=== PATIENT | male | born 1950 | race American Indian/Alaskan Native ===

== ENCOUNTER 2017-05-17 16:24 | Emergency (ER) | payer OTHER ==
--- NOTE | 2017-05-17 20:35 | Emergency Department Report ---
ED Fall HPI - General Chief Complaint: Fall Stated Complaint: FELL/RT LEG/BACK PAIN Time Seen by Provider: 05/17/17 19:49 Source: patient Mode of arrival: Ambulatory - History of Present Illness Initial Comments: Comes into the ER today with complaint of right posterior leg pain as well as right lower back pain after falling in [employer] 2 days ago. Patient states that he slipped and fell where one leg went forward and the other leg went backwards. Patient states that he had to be helped up. Patient denies any head injury. Patient states that the pain does seem to improve as he moves around and ambulates and that it is worse after he has been immobile for a while. Patient denies any loss of bowel control, urinary control, abdominal pain. Patient has been taking [id number] medications without any relief. MD Complaint: fall -: days(s) (2) - Related Data Previous Rx's Medication Instructions Recorded Last Taken Type Cyclobenzaprine [Flexeril] 10 mg PO TID PRN #20 tablet 05/17/17 Unknown Rx Naproxen [Naprosyn TAB] 500 mg PO BID #20 tablet 05/17/17 Unknown Rx traMADol [Ultram] 50 mg PO Q4HR PRN #30 tablet 05/17/17 Unknown Rx Allergies Allergy/AdvReac Type Severity Reaction Status Date / Time No Known Allergies Allergy Unverified 05/17/17 17:26 ED Review of Systems ROS: Stated complaint: FELL/RT LEG/BACK PAIN Other details as noted in HPI Constitutional: denies: chills, fever Eyes: denies: eye pain, eye discharge, vision change ENT: denies: ear pain, throat pain Respiratory: denies: cough, shortness of breath, wheezing Cardiovascular: denies: chest pain, palpitations Endocrine: no symptoms reported Gastrointestinal: denies: abdominal pain, nausea, diarrhea Genitourinary: denies: urgency, dysuria, testicular pain Musculoskeletal: back pain, myalgia. denies: joint swelling, arthralgia Skin: denies: rash, lesions Neurological: denies: headache, weakness, numbness, paresthesias, confusion, vertigo Psychiatric: denies: anxiety, depression Hematological/Lymphatic: denies: easy bleeding, easy bruising ED Past Medical Hx - Past Medical History Hx Asthma: Yes Additional medical history: MORBID OBESITY - Surgical History Past Surgical History?: No - Social History Smoking Status: Never Smoker Substance Use Type: None - Medications Home Medications: Home Medications Medication Instructions Recorded Confirmed Last Taken Type Cyclobenzaprine [Flexeril] 10 mg PO TID PRN #20 tablet 05/17/17 Unknown Rx Naproxen [Naprosyn TAB] 500 mg PO BID #20 tablet 05/17/17 Unknown Rx traMADol [Ultram] 50 mg PO Q4HR PRN #30 tablet 05/17/17 Unknown Rx ED Physical Exam - General Limitations: No Limitations General appearance: alert, in no apparent distress, obese - Head Head exam: Present: atraumatic, normocephalic, normal inspection - Eye Eye exam: Present: normal appearance - ENT ENT exam: Present: mucous membranes moist - Neck Neck exam: Present: normal inspection, full ROM. Absent: tenderness - Respiratory Respiratory exam: Present: normal lung sounds bilaterally. Absent: respiratory distress - Cardiovascular Cardiovascular Exam: Present: regular rate, normal rhythm. Absent: systolic murmur, diastolic murmur, rubs, gallop - GI/Abdominal GI/Abdominal exam: Present: soft, normal bowel sounds - Rectal Rectal exam: Present: deferred - Extremities Exam Extremities exam: Present: normal inspection, tenderness (right posterior thigh tenderness in hamstring region.), normal capillary refill. Absent: full ROM ( Limited right straight leg raise secondary to posterior right leg pain), pedal edema, calf tenderness - Back Exam Back exam: Present: normal inspection, tenderness (right lateral lumbar paraspinal tenderness), muscle spasm, paraspinal tenderness. Absent: full ROM ( Limited range of motion of lumbar spine secondary to pain), CVA tenderness (R), CVA tenderness (L), vertebral tenderness - Neurological Exam Neurological exam: Present: alert, oriented X3, CN II-XII intact, reflexes normal. Absent: motor sensory deficit - Psychiatric Psychiatric exam: Present: normal affect, normal mood - Skin Skin exam: Present: warm, dry, intact, normal color. Absent: rash ED Course Vital Signs 05/17/17 17:15 Temperature 98.2 F Pulse Rate 100 H Respiratory 18 Rate Blood Pressure 160/102 O2 Sat by Pulse 99 Oximetry ED Medical Decision Making - Radiology Data Radiology results: image reviewed interpreted by me: X-ray lumbar spine: No obvious acute bone pathology noted. No acute fracture, misalignment, disc space narrowing noted. Slight right lateral malrotation consistent with possible muscle spasm. Imaging quality limited secondary to body habitus. - Medical Decision Making Patient is nontoxic and hemodynamically stable. Patient able to stand on right leg without any difficulty. Patient's complaints seems to worsen with range of motion and movement with muscle contraction. X-ray imaging reviewed and discussed the patient in room. However refer patient to orthopedics for further evaluation and to ensure resolution of his injuries as well as start patient on a course of muscle relaxants, anti-inflammatories, pain medications for symptomatic relief. I have encouraged patient to continue range of motion activities while avoiding any strenuous activity. Patient is in agreement with treatment plan patient is stable for discharge. Critical care attestation.: If time is entered above; I have spent that time in minutes in the direct care of this critically ill patient, excluding procedure time. ED Disposition Clinical Impression: Fall with injury, Acute right-sided low back pain, Right hamstring muscle strain Disposition: TO HOME OR SELFCARE Is pt being admited?: No Does the pt Need Aspirin: No Condition: Good Instructions: Muscle Strain (ED), Low Back Strain (ED) Prescriptions: Cyclobenzaprine [Flexeril] 10 mg PO TID PRN #20 tablet PRN Reason: Muscle Spasm Naproxen [Naprosyn TAB] 500 mg PO BID #20 tablet traMADol [Ultram] 50 mg PO Q4HR PRN #30 tablet PRN Reason: Pain Referrals: PRIMARY CAREMD [Primary Care Provider] - 3-5 Days OMEGA LOVE MD [Staff Physician] - 3-5 Days Forms: Work/School Release Form(ED) Time of Disposition: 21:37
--- NOTE | 2017-05-17 21:35 | XRay Report ---
FINAL REPORT EXAM: XR SPINE LUMBOSACRAL 2-3V HISTORY: Low Back pain, fall injury . Patient slipped in water. TECHNIQUE: A single lateral view of the lumbar spine PRIORS: None. FINDINGS: The vertebral body heights and disc spaces are well maintained. The alignment is normal. No evidence for spondylolysis or spondylolisthesis is seen. The paraspinal soft tissues are unremarkable. IMPRESSION: Normal lumbar spine.
[2017-05-17 21:56] VITALS: BP 167/111
== END 2017-05-17 21:54 | disposition home or self-care (01) ==
LOC: ED 16:24
DX: S76.911A Strain of unspecified muscles, fascia and tendons at thigh level, right thigh, initial encounter (principal); M54.5 Low back pain; J45.909 Unspecified asthma, uncomplicated; E66.01 Morbid (severe) obesity due to excess calories; W01.0XXA Fall on same level from slipping, tripping and stumbling without subsequent striking against object, initial encounter; Y93.89 Activity, other specified; Y99.8 Other external cause status; Y92.512 Supermarket, store or market as the place of occurrence of the external cause
CPT/HCPCS: 72100; 99283

== ENCOUNTER 2019-11-04 16:50 | Emergency (ER) | payer OTHER ==
[2019-11-04] MEDS ORDERED: AMOXICILLIN/K CLAV 875/125MG TAB PO ONE (21:42)
[2019-11-04] MEDS ORDERED: predniSONE 20 MG TAB PO ONE (21:42)
[2019-11-04] MEDS ORDERED: ACETAMINOPHEN 500 MG TAB PO ONE (21:42)
--- NOTE | 2019-11-04 21:48 | Emergency Department Report ---
- General Chief Complaint: Upper Respiratory Infection Stated Complaint: SORE THROAT/PAIN Time Seen by Provider: 11/04/19 21:01 Source: patient Mode of arrival: Ambulatory Limitations: No Limitations - History of Present Illness Initial Comments: Mr. Ayala is a 69-year-old male with a history of asthma and obesity. Now patient presents today for sore throat past 2 weeks. Pain described as aching burning exacerbated by swallowing. There is no shortness of breath no wheezing no stridor. Patient denies nausea vomiting. There is no dizziness or headache. Patient is tolerating by mouth intake without problems. MD Complaint: fever, sore throat, rhinorrhea, nasal congestion Onset/Timin -: week(s) (that was) Severity: moderate Severity scale (0 -10): 5 Quality: aching Consistency: constant Improves With: nothing Worsens With: activity Context: sick contacts Associated Symptoms: fever, rhinorrhea, nasal congestion, sore throat, cough. denies: chest pain, shortness of breath, nausea, vomiting, hoarseness, ear pain Treatments Prior to Arrival: none - Related Data Previous Rx's Medication Instructions Recorded Last Taken Type Cyclobenzaprine [Flexeril] 10 mg PO TID PRN #20 tablet 05/17/17 Unknown Rx Naproxen [Naprosyn TAB] 500 mg PO BID #20 tablet 05/17/17 Unknown Rx traMADoL [Ultram] 50 mg PO Q4HR PRN #30 tablet 05/17/17 Unknown Rx Acetaminophen [Acetaminophen TAB] 1,000 mg PO Q6HR PRN #30 tablet 11/04/19 Unknown Rx Amoxicillin/Potassium Clav 1 each PO BID #20 tablet 11/04/19 Unknown Rx [Augmentin 875-125 Tablet] predniSONE [Deltasone] 40 mg PO DAILY 5 Days #10 tablet 11/04/19 Unknown Rx Allergies Allergy/AdvReac Type Severity Reaction Status Date / Time No Known Allergies Allergy Unverified 05/17/17 17:26 ED Review of Systems ROS: Stated complaint: SORE THROAT/PAIN Other details as noted in HPI Constitutional: chills, fever, malaise Eyes: denies: eye pain, eye discharge, vision change ENT: ear pain, throat pain Respiratory: cough. denies: shortness of breath, wheezing Cardiovascular: denies: chest pain, palpitations Endocrine: no symptoms reported Gastrointestinal: denies: abdominal pain, nausea, vomiting, diarrhea Genitourinary: denies: urgency, dysuria Musculoskeletal: denies: back pain, joint swelling, arthralgia Skin: denies: rash, lesions Neurological: denies: headache, weakness, paresthesias, vertigo Psychiatric: denies: anxiety, depression Hematological/Lymphatic: denies: easy bleeding, easy bruising ED Past Medical Hx - Past Medical History Previous Medical History?: Yes Hx Hypertension: No Hx CVA: No Hx Heart Attack/AMI: No Hx Congestive Heart Failure: No Hx Diabetes: No Hx Deep Vein Thrombosis: No Hx Pulmonary Embolism: No Hx GERD: No Hx Liver Disease: No Hx Renal Disease: No Hx of Cancer: No Hx Sickle Cell Disease: No Hx Arthritis: No Hx Headaches / Migraines: No Hx Seizures: No Hx Kidney Stones: No Hx Psychiatric Treatment: No Hx Asthma: Yes Hx COPD: No Hx Tuberculosis: No Hx Dementia: No Hx HIV: No Additional medical history: MORBID OBESITY - Surgical History Past Surgical History?: No Hx Coronary Stent: No Hx Open Heart Surgery: No Hx Pacemaker: No Hx Internal Defibrillator: No Hx Cholecystectomy: No Hx Appendectomy: No Hx Breast Surgery: No - Social History Smoking Status: Never Smoker - Medications Home Medications: Home Medications Medication Instructions Recorded Confirmed Last Taken Type Cyclobenzaprine [Flexeril] 10 mg PO TID PRN #20 tablet 05/17/17 Unknown Rx Naproxen [Naprosyn TAB] 500 mg PO BID #20 tablet 05/17/17 Unknown Rx traMADoL [Ultram] 50 mg PO Q4HR PRN #30 tablet 05/17/17 Unknown Rx Acetaminophen [Acetaminophen TAB] 1,000 mg PO Q6HR PRN #30 tablet 11/04/19 Unknown Rx Amoxicillin/Potassium Clav 1 each PO BID #20 tablet 11/04/19 Unknown Rx [Augmentin 875-125 Tablet] predniSONE [Deltasone] 40 mg PO DAILY 5 Days #10 tablet 11/04/19 Unknown Rx ED Physical Exam - General Limitations: No Limitations General appearance: alert, in no apparent distress - Head Head exam: Present: atraumatic, normocephalic, normal inspection - Eye Eye exam: Present: normal appearance, PERRL, EOMI Pupils: Present: normal accommodation - ENT ENT exam: Present: mucous membranes moist, TM's normal bilaterally, normal external ear exam - Expanded ENT Exam Expanded Ear exam: Present: normal external inspection Throat exam: Positive: tonsillar erythema, tonsillomegaly, tonsillar exudate, other (uvula midline mild swelling, clear post nasal drip, no lesions no stridor no wheezing ). Negative: R peritonsillar mass, L peritonsillar mass - Neck Neck exam: Present: normal inspection, full ROM, lymphadenopathy. Absent: tenderness, thyromegaly - Respiratory Respiratory exam: Present: normal lung sounds bilaterally. Absent: respiratory distress, wheezes, stridor, chest wall tenderness - Cardiovascular Cardiovascular Exam: Present: regular rate, normal rhythm, normal heart sounds. Absent: systolic murmur, diastolic murmur, rubs, gallop - GI/Abdominal GI/Abdominal exam: Present: soft, normal bowel sounds. Absent: distended, tenderness, guarding, rebound, rigid, bruit, hernia - Rectal Rectal exam: Present: deferred - Extremities Exam Extremities exam: Present: normal inspection - Back Exam Back exam: Present: normal inspection, full ROM. Absent: rash noted - Neurological Exam Neurological exam: Present: alert, oriented X3, CN II-XII intact, normal gait - Psychiatric Psychiatric exam: Present: normal affect, normal mood - Skin Skin exam: Present: warm, dry, intact, normal color. Absent: rash ED Course Vital Signs 11/04/19 11/04/19 17:10 20:04 Temperature 97.9 F 98.9 F Pulse Rate 102 H 102 H Respiratory 18 18 Rate Blood Pressure 152/55 152/55 O2 Sat by Pulse 93 98 Oximetry ED Medical Decision Making - Medical Decision Making this is pharyngitis, plan, augmentin, tylenol, prednisone. follow up with pcp in 2-3 days, return to emergency if symptoms worsen. pt verbalized agreement and understanding of discharge plan. Critical care attestation.: If time is entered above; I have spent that time in minutes in the direct care of this critically ill patient, excluding procedure time. ED Disposition Clinical Impression: Pharyngitis Qualifiers: Pharyngitis/tonsillitis etiology: unspecified etiology Qualified Code(s): J02.9 - Acute pharyngitis, unspecified Disposition: TO HOME OR SELFCARE Is pt being admited?: No Does the pt Need Aspirin: No Condition: Stable Instructions: Pharyngitis (ED) Prescriptions: Acetaminophen [Acetaminophen TAB] 1,000 mg PO Q6HR PRN #30 tablet PRN Reason: pain fever Amoxicillin/Potassium Clav [Augmentin 875-125 Tablet] 1 each PO BID #20 tablet predniSONE [Deltasone] 40 mg PO DAILY 5 Days #10 tablet Referrals: ARPAN MCCOLLUM MD [Staff Physician] - 3-5 Days Time of Disposition: 21:57
[2019-11-04 22:06] VITALS: BP 153/101
== END 2019-11-04 22:05 | disposition home or self-care (01) ==
LOC: ED 16:50
DX: J02.9 Acute pharyngitis, unspecified (principal); E66.01 Morbid (severe) obesity due to excess calories
CPT/HCPCS: 99282; J7512

== ENCOUNTER 2019-12-09 08:38 | Emergency (ER) | payer OTHER, MEDICARE ==
[2019-12-09] MEDS ORDERED: SODIUM CHLORIDE 0.9% 1000 ML 1,000 ML IV ONE ×2 (09:44→12:22)
[2019-12-09] MEDS ORDERED: INSULIN REGULAR, HUMAN 100 UNITS/1 ML IV ONE ×2 (09:44→12:22)
[2019-12-09 10:18] LABS: Creatine Kinase MB 1.2 ng/mL (0.0-4.0)
[2019-12-09 10:20] LABS: Alanine Aminotransferase 14 units/L (7-56); Albumin 3.6 g/dL (3.9-5); BUN/Creatinine Ratio 15; Blood Urea Nitrogen 19 mg/dL (9-20); Calcium 9.8 mg/dL (8.4-10.2); Hemolysis Index 16
--- NOTE | 2019-12-09 10:20 | XRay Report ---
CHEST 1 VIEW INDICATION: Lightheadedness/Dizziness. COMPARISON: None. FINDINGS: Support devices: None. Heart: Within normal limits. The aorta is tortuous and ectatic. Lungs/Pleura: No acute air space or interstitial disease. Volumes are diminished. Additional findings: None. IMPRESSION: Diminished lung volumes. Signer Name: Nitish Temple MD Signed: 12/09/2019 10:15 AM Workstation Name: [id number]
--- NOTE | 2019-12-09 10:23 | Emergency Department Report ---
ED Dizziness HPI - General Chief Complaint: Dizziness Stated Complaint: HYPERGLYCEMIA Time Seen by Provider: 12/09/19 09:42 Source: patient, EMS Mode of arrival: Stretcher Limitations: No Limitations - History of Present Illness Initial Comments: Patient is a 69-year-old obese -Spanish male who comes to the ER complaining of dizziness for 4 days. Patient denies chest pain or shortness of breath. He denies fever or chills. He denies abdominal pain or nausea or vomiting. He denies diarrhea. Per EMS blood sugar was reading high on glucome ter. Patient states that he takes no home medications and has no known medical problems. He has not had no surgeries. Patient does not have a primary care doctor. Patient denies ever having had a heart attack or stroke. He denies ever being told he had high blood pressure high cholesterol or diabetes. Patient lives with his son. Patient denies cigarettes alcohol or drugs. - Related Data Previous Rx's Medication Instructions Recorded Last Taken Type glipiZIDE [Glucotrol] 5 mg PO BID #60 tablet 12/09/19 Unknown Rx metFORMIN [Glucophage] 500 mg PO BID #60 tablet 12/09/19 Unknown Rx Allergies Allergy/AdvReac Type Severity Reaction Status Date / Time No Known Allergies Allergy Unverified 05/17/17 17:26 ED Review of Systems ROS: Stated complaint: HYPERGLYCEMIA Other details as noted in HPI Comment: All other systems reviewed and negative ED Past Medical Hx - Past Medical History Previous Medical History?: Yes Hx Hypertension: Yes Hx CVA: No Hx Heart Attack/AMI: No Hx Congestive Heart Failure: No Hx Diabetes: No Hx Deep Vein Thrombosis: No Hx Pulmonary Embolism: No Hx GERD: No Hx Liver Disease: No Hx Renal Disease: No Hx Sickle Cell Disease: No Hx Arthritis: No Hx Headaches / Migraines: No Hx Seizures: No Hx Kidney Stones: No Hx Psychiatric Treatment: No Hx Asthma: Yes Hx COPD: No Hx Tuberculosis: No Hx Dementia: No Hx HIV: No Additional medical history: MORBID OBESITY - Surgical History Past Surgical History?: No Hx Coronary Stent: No Hx Open Heart Surgery: No Hx Pacemaker: No Hx Internal Defibrillator: No Hx Cholecystectomy: No Hx Appendectomy: No Hx Breast Surgery: No - Social History Smoking Status: Never Smoker Substance Use Type: None - Medications Home Medications: Home Medications Medication Instructions Recorded Confirmed Last Taken Type glipiZIDE [Glucotrol] 5 mg PO BID #60 tablet 12/09/19 Unknown Rx metFORMIN [Glucophage] 500 mg PO BID #60 tablet 12/09/19 Unknown Rx ED Physical Exam - General Limitations: No Limitations General appearance: alert, in no apparent distress - Head Head exam: Present: atraumatic, normocephalic - Eye Eye exam: Present: normal appearance - ENT ENT exam: Present: mucous membranes moist - Neck Neck exam: Present: normal inspection - Respiratory Respiratory exam: Present: normal lung sounds bilaterally. Absent: respiratory distress - Cardiovascular Cardiovascular Exam: Present: regular rate, normal rhythm. Absent: systolic murmur, diastolic murmur, rubs, gallop - GI/Abdominal GI/Abdominal exam: Present: soft, normal bowel sounds - Rectal Rectal exam: Present: deferred - Extremities Exam Extremities exam: Present: normal inspection - Back Exam Back exam: Present: normal inspection - Neurological Exam Neurological exam: Present: alert, oriented X3 - Psychiatric Psychiatric exam: Present: normal affect, normal mood - Skin Skin exam: Present: warm, dry, intact, normal color. Absent: rash ED Course Vital Signs 12/09/19 12/09/19 12/09/19 09:16 09:19 09:25 Temperature 98.2 F 98.2 F Pulse Rate 92 H 92 H Respiratory 20 20 12 Rate Blood Pressure 147/107 Blood Pressure 147/107 [Right] O2 Sat by Pulse 95 95 Oximetry 12/09/19 12/09/19 12/09/19 09:31 09:45 10:01 Temperature Pulse Rate 91 H 86 95 H Respiratory 12 15 13 Rate Blood Pressure 135/87 135/87 144/86 Blood Pressure [Right] O2 Sat by Pulse 93 93 94 Oximetry 12/09/19 12/09/19 12/09/19 10:15 10:31 10:45 Temperature Pulse Rate 88 88 94 H Respiratory 9 L 13 22 Rate Blood Pressure 144/86 144/86 144/86 Blood Pressure [Right] O2 Sat by Pulse 94 95 94 Oximetry 12/09/19 12/09/19 12/09/19 11:00 11:15 11:31 Temperature Pulse Rate 101 H 94 H 93 H Respiratory 16 17 16 Rate Blood Pressure 119/76 144/86 144/86 Blood Pressure [Right] O2 Sat by Pulse 100 96 95 Oximetry 12/09/19 12/09/19 12/09/19 11:45 12:00 12:15 Temperature Pulse Rate 102 H 93 H 91 H Respiratory 15 27 H 23 Rate Blood Pressure 144/86 117/77 119/76 Blood Pressure [Right] O2 Sat by Pulse 94 95 93 Oximetry 12/09/19 12/09/19 12/09/19 12:31 12:45 13:00 Temperature Pulse Rate 91 H 91 H 91 H Respiratory 22 22 19 Rate Blood Pressure 119/76 117/77 115/64 Blood Pressure [Right] O2 Sat by Pulse 92 91 92 Oximetry ED Medical Decision Making - Lab Data Result diagrams: 12/09/19 10:33 12/09/19 09:43 - EKG Data -: EKG Interpreted by Nc EKG shows normal: sinus rhythm - EKG Data Interpretation: other (rbbb) - Radiology Data Radiology results: report reviewed, image reviewed - Medical Decision Making Labs 12/09/19 12/09/19 12/09/19 09:38 09:43 10:11 WBC RBC Hgb Hct MCV MCH MCHC RDW Plt Count Lymph % (Auto) [place] % (Auto) Eos % (Auto) Baso % (Auto) Lymph # [place] # Eos # Baso # Seg Neutrophils % Seg Neutrophils # VBG pH 7.323 Sodium 134 L Potassium 4.5 Chloride 95.0 L Carbon Dioxide 14 L Anion Gap 30 BUN 19 Creatinine 1.3 Estimated GFR > 60 BUN/Creatinine Ratio 15 Glucose 464 H POC Glucose 441 H Calcium 9.8 Total Bilirubin 0.90 AST 12 ALT 14 Alkaline Phosphatase 62 Total Creatine Kinase 74 CK-MB (CK-2) 1.2 CK-MB (CK-2) Rel Index 1.6 Troponin T < 0.010 Total Protein 8.0 Albumin 3.6 L Albumin/Globulin Ratio 0.8 12/09/19 10:33 WBC 7.9 RBC 4.93 Hgb 13.7 Hct 43.9 MCV 89 MCH 28 MCHC 31 L RDW 14.0 Plt Count 168 Lymph % (Auto) 23.7 [place] % (Auto) 11.4 H Eos % (Auto) 1.7 Baso % (Auto) 0.6 Lymph # 1.9 [place] # 0.9 H Eos # 0.1 Baso # 0.0 Seg Neutrophils % 62.6 Seg Neutrophils # 5.0 VBG pH Sodium Potassium Chloride Carbon Dioxide Anion Gap BUN Creatinine Estimated GFR BUN/Creatinine Ratio Glucose POC Glucose Calcium Total Bilirubin AST ALT Alkaline Phosphatase Total Creatine Kinase CK-MB (CK-2) CK-MB (CK-2) Rel Index Troponin T Total Protein Albumin Albumin/Globulin Ratio staffed with Dr Bar EKG noted. Labs noted. UA noted. Patient given 2 L normal saline in the ER. His blood sugar has been treated with regular insulin and is trending down. EKG noted. Chest x-ray noted. [address] Tucker Patient is being discharged to home on metformin and glipizide. He has been given a prescription for glucometer lancets and strips. Patient is to follow-up with Dr. Hahn. I have met with the patient and his son and gone through his discharge instructions myself. He will get his medications filled he has been given a good Rx card. And he will follow-up with Dr. Tucker. I have discussed his diet and eliminating or minimizing his carbohydrate intake. I have given him verbal and written instructions. Son understands that diabetes can be life- threatening and that there are consequences to not taking his medications and not changing his diet. Patient will see Dr. Sanchez work on risk reduction. He has been instructed that he is expected to pay $80 at the time of his visit and he states that is not a problem. Patient being discharged home with stable vital signs and no complaints. - Differential Diagnosis hyperglycemia; ro dka Critical care attestation.: If time is entered above; I have spent that time in minutes in the direct care of this critically ill patient, excluding procedure time. ED Disposition Clinical Impression: Hyperglycemia, New onset type 2 diabetes mellitus, Obesity Disposition: TO HOME OR SELFCARE Is pt being admited?: No Does the pt Need Aspirin: No Condition: Stable Instructions: Diabetes Mellitus Type 2 in Adults (ED) Additional Instructions: diabetic diet stay well hydrated with water follow up with PCP [facility] referrals below avoid sugar and carbs Prescriptions: metFORMIN [Glucophage] 500 mg PO BID #60 tablet glipiZIDE [Glucotrol] 5 mg PO BID #60 tablet Referrals: PARRIS ORR MD [Staff Physician] - 3-5 Days PRIMARY CARE, [Primary Care Provider] - 3-5 Days CRISTAL TUCKER MD [Staff Physician] - 3-5 Days Time of Disposition: 11:02
[2019-12-09 10:49] LABS: Basophils % (Auto) 0.6 % (0.0-1.8); Eosinophils # (Auto) 0.1 K/mm3 (0.0-0.4); Eosinophils % (Auto) 1.7 % (0.0-4.3); Hematocrit 43.9 % (35.5-45.6); Hemoglobin 13.7 gm/dl (11.8-15.2); Lymphocytes # (Auto) 1.9 K/mm3 (1.2-5.4); Lymphocytes % (Auto) 23.7 % (13.4-35.0); Mean Corpuscular HGB Conc 31 % (32-34); Mean Corpuscular Volume 89 fl (84-94); Monocytes # (Auto) 0.9 K/mm3 (0.0-0.8); Monocytes % (Auto) 11.4 % (0.0-7.3); Platelet Count 168 K/mm3 (140-440); Red Blood Count 4.93 M/mm3 (3.65-5.03)
[2019-12-09 11:41] LABS: Bacteria,Urine 1+ /HPF (Negative); Bilirubin,Urine NEG (Negative); Blood,Urine NEG (Negative); Color,Urine Yellow (Yellow); Mucus,Urine FEW /HPF; Protein,Urine <15 mg/dL mg/dL (Negative); Urobilinogen,Urine < 2.0 mg/dL (<2.0)
[2019-12-09 14:46] VITALS: BP 111/80
== END 2019-12-09 14:46 | disposition home or self-care (01) ==
LOC: ED 08:38
DX: E11.65 Type 2 diabetes mellitus with hyperglycemia (principal); E66.01 Morbid (severe) obesity due to excess calories; I10 Essential (primary) hypertension; J45.909 Unspecified asthma, uncomplicated; Z68.42 Body mass index [BMI] 45.0-49.9, adult; Z79.84 Long term (current) use of oral hypoglycemic drugs; Z79.899 Other long term (current) drug therapy
CPT/HCPCS: 36415; 71045; 80053; 81001; 82550; 82553; 82805; 82962; 84484; 85025; 93005; 93010; 96361; 96374; 96376; 99284; J7030; J1815